=== PATIENT | male | born 1950 | race Caucasian/White ===

== ENCOUNTER 2018-04-07 01:41 | Emergency (ER) | payer MEDICARE, BC ==
[2018-04-07] MEDS ORDERED: HYDROcodone/Acetaminophen 10/325 mg Tablet ONE (02:03)
[2018-04-07] MEDS ORDERED: predniSONE 20 MG TAB ONE (02:04)
[2018-04-07] MEDS ORDERED: Ketorolac Tromethamine 60 MG/2 ML VIAL ONE (02:04)
== END 2018-04-07 02:20 | disposition home or self-care (01) ==
LOC: MADERS 01:41
DX: M54.31 Sciatica, right side (principal); I10 Essential (primary) hypertension
CPT/HCPCS: 96372; J1885; J7506